=== PATIENT | male | born 1985 | race African-American/Black ===

== ENCOUNTER 2023-07-12 08:37 | Emergency (ER) | payer OTHER ==
[~2023-07-12] VITALS: Ht 188 cm; Wt 93.0 kg
[2023-07-12 08:55] VITALS: O2SAT 99
[2023-07-12 09:33] LABS: *BILIRUBIN,URIN NEGATIVE (NEGATIVE); *BLOOD, URINE NEGATIVE (NEGATIVE); *CLARITY,URINE CLEAR (CLEAR); *COLOR,URINE YELLOW (YELLOW); *KETONES,URINE NEGATIVE (NEGATIVE); *PROTEIN,URINE NEGATIVE (NEGATIVE); *UROBILINOGEN,URINE 0.2 E.U./dl (NORMAL); LEUKOCYTE ESTERASE ,URINE NEGATIVE (NEGATIVE); NITRITE, URINE NEGATIVE (NEGATIVE); PH,URINE 6.5 (5.0-8.0); UGLUCOSE NEGATIVE (NEGATIVE)
[2023-07-12] MEDS ORDERED: DOXY100T2 PO (10:44)
[2023-07-12] MEDS ORDERED: AZIT1PAC9 PO (10:44)
== END 2023-07-12 11:10 | disposition home or self-care (01) ==
LOC: ER 08:37
DX: R35.0 Frequency of micturition (principal); R36.9 Urethral discharge, unspecified; Z79.2 Long term (current) use of antibiotics
CPT/HCPCS: A4606; A4663